=== PATIENT | male | born 1990 | race Caucasian/White ===

== ENCOUNTER 2016-11-09 20:22 | Inpatient (IN) ==
--- NOTE | 2016-11-09 20:40 | Emergency Department Note ---
Disposition Clinical Impression: Pneumothorax Qualifiers: Encounter type: initial encounter Disposition: Admitted As Inpatient Referrals: NO,PCP [Primary Care Provider] - Forms: ED Satisfaction Letter General Adult HPI - General Chief complaint: ED Shortness of Breath/Dyspnea Stated complaint: air bubble in lung Time Seen by Provider: 11/09/16 20:26 Source: patient Limitations: no limitations Nursing Notes Reviewed: Yes Vital Signs Reviewed: Yes - History of Present Illness HPI Narrative: Patient presents complaint right-sided chest pain that occurred spontaneously today. Patient stated he was just sitting watching TV and he noticed side chest pain. Patient was seen at urgent care had x-rays done that was significant for a right-sided apical pneumothorax. Patient denies shortness of breath but he does have pain when he takes a deep breath. Patient denies cough denies fevers or chills. Pain Scale: 7 - Related Data Previous Rx's Medication Instructions Recorded MethylPREDNISolone [Medrol] 4 mg PO TAPER #21 tablet 11/09/16 Allergies Allergy/AdvReac Type Severity Reaction Status Date / Time No Known Allergies Allergy Verified 11/09/16 17:37 All systems ED: reviewed and negative except as stated. Past Medical History - Past Medical History Source: patient Medical history: Reports: non-contributory Psychiatric history: Reports: no psych history - Social History Smoking Status: Current every day smoker Smokeless Tobacco Status: No Alcohol use: Reports: none Drug use: Reports: none Physical Exam - General Limitations: no limitations General appearance: alert, in no apparent distress - Head Head exam: atraumatic, normocephalic, normal inspection - Eye Eye exam: Present: normal appearance, PERRL, EOMI - ENT ENT exam: normal exam, normal oropharynx, mucous membranes moist - Neck Neck exam: Present: normal inspection, full ROM, trachea midline - Chest Chest inspection: Present: normal inspection, symmetric chest wall rise - Respiratory Respiratory exam: Present: normal lung sounds bilaterally - Cardiovascular Cardiovascular exam: Present: regular rate, normal rhythm, normal heart sounds - Abdominal Exam Abdominal exam: Present: soft, Non-Tender. Absent: tenderness, distention, guarding, rebound, rigidity - Extremities Exam Extremities exam: Present: normal inspection, full ROM. Absent: tenderness, pedal edema - Back Exam Back exam: Present: normal inspection, full ROM. Absent: tenderness - Neurological Exam Neurological exam: Present: alert, oriented X3 - Psychiatric Psychiatric exam: Present: normal affect, normal mood - Skin Skin exam: Present: warm, dry, intact, normal color Course Course Narrative: Discussed this patient with Dr. Sepulveda of the surgery service who graciously the agreed to admit the patient Vital Signs Temperature 97.9 F 11/09/16 20:28 Pulse Rate 71 11/09/16 20:28 Respiratory Rate 16 11/09/16 20:28 Blood Pressure 132/75 11/09/16 20:28 O2 Sat by Pulse Oximetry 98 11/09/16 20:28 Temperature 97.9 F 11/09/16 20:28 Pulse Rate 71 11/09/16 20:28 Respiratory Rate 16 11/09/16 20:28 Blood Pressure 132/75 11/09/16 20:28 O2 Sat by Pulse Oximetry 98 11/09/16 20:28 Oxygen Delivery Oxygen Delivery Room Air Medical Decision Making - Radiology Data Small right-sided pneumothorax as interpreted by radiology
[2016-11-09] MEDS ORDERED: *HR* Morphine 2 MG/ML SYRINGE IVP PRN (21:12)
[2016-11-09] MEDS ORDERED: Ondansetron 4 MG/2 ML VIAL IVP PRN (21:12)
[2016-11-09] MEDS ORDERED: Naloxone 0.4 MG/ML INJ IVP PRN (21:12)
[2016-11-09] MEDS ORDERED: *HR* Promethazine 25 MG/ML VIAL IVP PRN (21:12)
[2016-11-09] MEDS: 0.9 % Sodium Chloride 1,000 ML IVC SCH (22:25)
[2016-11-09] MEDS: Ipratropium/Albuterol Neb 3 ML IH SCH (23:07)
[2016-11-10] MEDS: Ipratropium/Albuterol Neb 3 ML IH SCH ×4 (04:02→22:24)
[2016-11-10 04:42] LABS: Basophils # 0.1 K/mcL (0.0-0.2); Basophils % 0.8 %; Eosinophils # 0.5 K/mcL (0.0-0.6); Eosinophils % 5.5 %; Hemoglobin 14.3 g/dL (12.9-16.9); Immature Granulocytes % 0.2 % (0-4); Lymphocytes # 3.1 K/mcL (0.6-4.6); Lymphocytes % 35.6 %; Mean Corpuscular Hemoglobin 31.1 pg (28.0-33.3); Mean Corpuscular Volume 91.3 fL (83.0-100.0); Monocytes # 0.9 K/mcL (0.0-1.3); Monocytes % 9.7 %; Neutrophils # 4.2 K/mcL (1.6-8.9); Platelet Count 166 K/mcL (140-400); Red Cell Distribution Width 12.7 % (11.5-14.5); Segmented Neutrophils % 48.2 %
[2016-11-10 05:06] LABS: BUN/Creatinine Ratio 13 (6-26); Blood Urea Nitrogen 10 mg/dL (8-26); Calcium 8.8 mg/dL (8.6-10.8); Carbon Dioxide 24 mEq/L (19-29); Chloride 105 mEq/L (98-109); Glucose 88 mg/dL (70-99); Osmolality,Calculated 290 (280-300); Potassium 3.9 mEq/L (3.5-4.5); Sodium 141 mEq/L (136-145); eGFR For African Americans > 60 (> 60); eGFR For Non-African Americans > 60 (> 60)
[2016-11-10] MEDS: 0.9 % Sodium Chloride 1,000 ML IVC SCH (07:49)
[2016-11-10] MEDS ORDERED: Pantoprazole 40 MG VIAL IVP SCH (09:00)
[2016-11-10] MEDS ORDERED: *HR* FentaNYL (PF) 100 MCG/2 ML VIAL IV PRN (10:22)
[2016-11-10] MEDS ORDERED: *HR* Midazolam HCl 2 MG/2 ML VIAL IV PRN (10:22)
[2016-11-10] MEDS ORDERED: 0.9 % Sodium Chloride 500 ML ONE (10:28)
--- NOTE | 2016-11-10 10:38 | IR Procedure Note ---
Date of procedure: 11/10/16 Consent Obtained: Verbal consent, Written consent Timeout: Correct patient and procedure verified, Correct site verified, Time out performed, Skin prep completed Local anesthetic: Lidocaine 1% Indications: Enlarging right PTX Procedure Performed: Right chest tube Site/Technique: Right chest tube placed Results/Findings: Small right PTX Estimated blood loss (cc): 1 Complications: None; Tolerated procedure well Post Procedure Treatment Plan: Continue inpatient care
[2016-11-10] MEDS ORDERED: *HR* OxyCODONE/APAP 5/325 TABLET PO PRN (12:08)
--- NOTE | 2016-11-10 15:08 | General Surg History&Physical ---
Date of Encounter: 11/10/16 Time of Encounter: 10:30 Assessment and Plan (1) Pneumothorax, right Current Visit: Yes Status: Acute The assessment and plan as outlined above was discussed with the patient and/or family members who expressed understanding and agreement. All questions were answered. Chest x-ray this morning shows progression of the pneumothorax despite being on 3 L nasal cannula continuously last night, incentive spirometer, scheduled aerosols. We had IR placed a pigtail catheter in the into the right pneumothorax given the progression. Chest tube will be to -20 mmHg continuous suction When necessary pain control 3 L nasal cannula continuously, aggressive pulmonary toilet with incentive spirometer and scheduled aerosols She can have a regular diet Daily chest x-rays History of Present Illness Chief complaint: chest pain/right sided HPI: Mr. Rockwell is a 26 year old male who was sitting on the couch is today afternoon when he started experiencing right upper chest and right back pain. He denies being short of breath at the time. He denies any dizziness or lightheadedness. He has never had symptoms like this before. He came to the ER and a chest x-ray was done which showed a small right apical pneumothorax. Past Med Surg Social Fam HX - Past Medical History Source: patient Medical history: non-contributory Psychiatric history: no psych history - Past Surgical History Surgical History: no surgical history - Social History Smoking Status: Current every day smoker Packs per day: 1 Smokeless Tobacco Status: No Alcohol use: none Drug use: none - Family History Grandmother History Unknown: Yes Medications and Allergies No Known Home Drugs 11/10/16 [History] Allergies No Known Allergies Allergy (Verified 11/10/16 13:40) Review of Systems All systems PM: reviewed and no additional remarkable complaints except as stated All systems PM: A 10-system review of systems was performed and is negative for pertinent findings except as documented above in the HPI. General Surgery Exam Initial Vital Signs Temp Pulse Resp BP Pulse Ox 97.9 F 71 16 132/75 98 11/09/16 20:28 11/09/16 20:28 11/09/16 20:28 11/09/16 20:28 11/09/16 20:28 - General physical appearance well developed, well nourished, no distress - Eyes PERRL, normal ocular movement - ENT normal mucosa, atraumatic, normocephalic - Neck trachea midline - Respiratory normal respiratory effort, clear to auscultation - Cardiovascular Cardiovascular exam: Present: RRR, no murmurs/rubs/gallops - Integumentary Integumentary general surgery: Present: warm and dry, no abnormal pigmentation. Absent: diaphoresis - Neurologic Present: CN 2-12 grossly intact - Musculoskeletal Present: normal gait, normal posture - Psychiatric Psychiatric general surgery: Present: A&Ox3 Results - Labs 11/10/16 03:56 11/10/16 03:56 Abnormal lab results POC Glucose 96 (58-89) H 11/10/16 05:06 Diabetes panel 11/10/16 Range/Units 03:56 Sodium 141 (136-145) mEq/L Potassium 3.9 (3.5-4.5) mEq/L Chloride 105 (98-109) mEq/L Carbon Dioxide 24 (19-29) mEq/L BUN 10 (8-26) mg/dL Creatinine 0.79 (0.72-1.25) mg/dL Glucose 88 (70-99) mg/dL Calcium 8.8 (8.6-10.8) mg/dL Calcium panel 11/10/16 Range/Units 03:56 Calcium 8.8 (8.6-10.8) mg/dL Pituitary panel 11/10/16 Range/Units 03:56 Sodium 141 (136-145) mEq/L Potassium 3.9 (3.5-4.5) mEq/L Chloride 105 (98-109) mEq/L Carbon Dioxide 24 (19-29) mEq/L BUN 10 (8-26) mg/dL Creatinine 0.79 (0.72-1.25) mg/dL Glucose 88 (70-99) mg/dL Calcium 8.8 (8.6-10.8) mg/dL Adrenal panel 11/10/16 Range/Units 03:56 Sodium 141 (136-145) mEq/L Potassium 3.9 (3.5-4.5) mEq/L Chloride 105 (98-109) mEq/L Carbon Dioxide 24 (19-29) mEq/L BUN 10 (8-26) mg/dL Creatinine 0.79 (0.72-1.25) mg/dL Glucose 88 (70-99) mg/dL Calcium 8.8 (8.6-10.8) mg/dL All other labs normal. - Imaging Chest x-ray: report reviewed, image reviewed
[2016-11-10] MEDS: *HR* OxyCODONE/APAP 5/325 TABLET PO PRN (17:03)
[2016-11-10] MEDS: *HR* Heparin 5,000 UNIT/ML VIAL SQ SCH (18:31)
[2016-11-11 04:35] LABS: Basophils # 0.1 K/mcL (0.0-0.2); Basophils % 0.9 %; Eosinophils # 0.4 K/mcL (0.0-0.6); Eosinophils % 5.3 %; Hematocrit 41.3 % (37.5-50.1); Hemoglobin 13.8 g/dL (12.9-16.9); Immature Granulocytes % 0.2 % (0-4); Lymphocytes # 2.5 K/mcL (0.6-4.6); Lymphocytes % 37.9 %; Mean Corpuscular HGB Conc 33.4 g/dL (31.6-35.5); Mean Corpuscular Hemoglobin 31.2 pg (28.0-33.3); Mean Corpuscular Volume 93.2 fL (83.0-100.0); Monocytes # 0.6 K/mcL (0.0-1.3); Neutrophils # 3.1 K/mcL (1.6-8.9); Platelet Count 149 K/mcL (140-400); Red Blood Count 4.43 M/mcL (4.19-5.50); Red Cell Distribution Width 12.8 % (11.5-14.5); Segmented Neutrophils % 46.7 %
[2016-11-11] MEDS: Ipratropium/Albuterol Neb 3 ML IH SCH ×4 (04:45→22:27)
[2016-11-11] MEDS: *HR* Heparin 5,000 UNIT/ML VIAL SQ SCH ×2 (06:20→18:03)
--- NOTE | 2016-11-11 06:24 | Electrocardiograph Report ---
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
--- NOTE | 2016-11-11 13:14 | General Surgery Progress Note ---
<Mariela Galvan - Last Filed: 11/11/16 13:15> Date of Encounter: 11/11/16 Time of Encounter: 13:00 - Assessment and Plan (1) Pneumothorax, right Current Visit: Yes Status: Acute Chest tube to 20cm suction Repeat chest x-ray in the am Incentive Spirometer every 1 hour while awake Supportive care Continue scheduled aerosols Subjective Patient reports: feels better, tolerating a regular diet, voiding w/o difficulty , afebrile, other (Denies shortness of breath) Objective Vital Signs - Last 8 Hours Temp Pulse Resp BP Pulse Ox 11/11/16 11:02 98.2 F 71 16 119/61 97 11/11/16 10:29 16 98 11/11/16 07:23 97.7 F 73 16 110/61 97 Intake and Output 11/10/16 11/11/16 11/11/16 23:59 07:59 15:59 Intake Total 240 / 240 0 / 0 850 / 850 Output Total 700 / 700 750 / 750 600 / 600 Balance -460 / -460 -750 / -750 250 / 250 Intake: Oral 240 / 240 0 / 0 850 / 850 Output: Urine 700 / 700 750 / 750 600 / 600 Other: Meal Dinner Breakfast Percent of Meal Consumed 100% 10% # Bowel Movements 0 Weight 64.7 kg Blood Glucose* 108 Patient Weight 11/11/16 23:59 Weight 64.7 kg - General physical appearance well developed, well nourished, no distress - Eyes normal ocular movement - ENT normal mucosa, atraumatic, normocephalic - Neck Neck exam: trachea midline - Respiratory normal expansion, normal respiratory effort, clear to auscultation, other ( Right chest tube to 20cm suction - no leak) - Cardiovascular Cardiovascular exam: Present: RRR - Abdomen Abdomen: Present: bowel sounds present, soft, non tender - Neurologic CN 2-12 grossly intact - Musculoskeletal normal gait, normal posture - Psychiatric oriented to time, oriented to person, oriented to place, speech is normal, memory intact - Labs 11/11/16 04:00 11/10/16 03:56 Consult Discharge Plan - Plan Referrals: NO,PCP [Primary Care Provider] - - Attending Attestation I examined this patient and my medical decision-making was reviewed with the FOUNDER [employer] CEO/PA/Advanced Practice Nurse/Resident Physician. I agree with the documented findings, disposition and treatment plan as described except to the extent set forth below. <Patience Sepulveda - Last Filed: 11/11/16 17:16> - Assessment and Plan (1) Pneumothorax, right Current Visit: Yes Status: Acute pneumothorax improved but not fully resolved continue CT to -20 suction O2 3 L NC aggressive pulmonary toilet, IS, aerosols cxr in am Subjective Narrative: no further chest pain or SOB irritated because has to be in hospital Objective Vital Signs - Last 8 Hours Temp Pulse Resp BP Pulse Ox 11/11/16 15:40 16 97 11/11/16 14:29 97.6 F 69 16 106/56 99 11/11/16 11:02 98.2 F 71 16 119/61 97 11/11/16 10:29 16 98 Intake and Output 11/11/16 11/11/16 11/11/16 07:59 15:59 23:59 Intake Total 0 / 0 1090 / 1090 Output Total 750 / 750 1350 / 1350 Balance -750 / -750 -260 / -260 Intake: Oral 0 / 0 1090 / 1090 Output: Urine 750 / 750 1350 / 1350 Other: Meal Lunch Percent of Meal Consumed 0% # Bowel Movements 0 0 Weight 64.7 kg Patient Weight 11/11/16 23:59 Weight 64.7 kg - General physical appearance well developed, well nourished, no distress, no pain - Eyes PERRL, normal ocular movement - ENT normal mucosa, normocephalic - Neck Neck exam: trachea midline - Respiratory normal expansion, normal respiratory effort, clear to auscultation, other - Cardiovascular Cardiovascular exam: Present: RRR - Abdomen Abdomen: Present: bowel sounds present, soft, non tender - Integumentary no rash, no growths - Neurologic CN 2-12 grossly intact - Musculoskeletal normal posture - Psychiatric oriented to time, oriented to person, oriented to place, speech is normal, memory intact - Labs 11/11/16 04:00 11/10/16 03:56 - Imaging Chest x-ray: report reviewed, image reviewed
[2016-11-12] MEDS: Ipratropium/Albuterol Neb 3 ML IH SCH ×4 (03:06→21:43)
[2016-11-12] MEDS: *HR* Morphine 2 MG/ML SYRINGE IVP PRN ×2 (03:40→18:29)
[2016-11-12 04:49] LABS: Basophils # 0.1 K/mcL (0.0-0.2); Basophils % 0.6 %; Eosinophils # 0.3 K/mcL (0.0-0.6); Eosinophils % 4.4 %; Hematocrit 42.4 % (37.5-50.1); Hemoglobin 14.4 g/dL (12.9-16.9); Immature Granulocytes % 0.1 % (0-4); Lymphocytes # 2.1 K/mcL (0.6-4.6); Lymphocytes % 27.2 %; Mean Corpuscular Hemoglobin 31.4 pg (28.0-33.3); Mean Corpuscular Volume 92.6 fL (83.0-100.0); Mean Platelet Volume 10.9 fL (9.4-12.4); Monocytes # 0.9 K/mcL (0.0-1.3); Monocytes % 10.9 %; Neutrophils # 4.4 K/mcL (1.6-8.9); Platelet Count 159 K/mcL (140-400); Red Blood Count 4.58 M/mcL (4.19-5.50); Red Cell Distribution Width 12.9 % (11.5-14.5); Segmented Neutrophils % 56.8 %
[2016-11-12] MEDS: *HR* Heparin 5,000 UNIT/ML VIAL SQ SCH ×2 (06:07→18:29)
--- NOTE | 2016-11-12 09:56 | General Surgery Progress Note ---
<Mariela Galvan - Last Filed: 11/12/16 09:54> Date of Encounter: 11/12/16 Time of Encounter: 09:30 - Assessment and Plan (1) Pneumothorax, right Current Visit: Yes Status: Acute Chest tube to placed to water seal Repeat chest x-ray at 1400 today Incentive Spirometer every 1 hour while awake Supportive care Continue scheduled aerosols Subjective Patient reports: feels better, tolerating a regular diet, voiding w/o difficulty , afebrile, other (Patient had an episode of chest pain and shortness of breath last night. States that it was resolved with morphine and increase in supplemental oxygen to 4L per nasal cannula.) Objective Vital Signs - Last 8 Hours Temp Pulse Resp BP Pulse Ox 11/12/16 08:21 97.4 F L 67 18 112/68 99 11/12/16 03:08 18 100 11/12/16 03:05 97.6 F 72 20 119/71 95 Intake and Output 11/11/16 11/12/16 11/12/16 23:59 07:59 15:59 Intake Total 120 / 120 Output Total 600 / 600 0 / 0 Balance -600 / -600 120 / 120 Intake: Oral 120 / 120 Output: Urine 600 / 600 0 / 0 Other: Meal Breakfast Percent of Meal Consumed 30% Weight 65.1 kg Patient Weight 11/12/16 23:59 Weight 65.1 kg - General physical appearance well developed, well nourished, no distress - Eyes normal ocular movement - ENT normal mucosa, atraumatic, normocephalic - Neck Neck exam: trachea midline - Respiratory normal respiratory effort, clear to auscultation, other (chest tube to 20cm suction, no leak) - Cardiovascular Cardiovascular exam: Present: RRR - Abdomen Abdomen: Present: bowel sounds present, soft, non tender - Neurologic CN 2-12 grossly intact - Musculoskeletal normal gait, normal posture - Psychiatric oriented to time, oriented to person, oriented to place, speech is normal, memory intact - Labs 11/12/16 04:32 11/10/16 03:56 Consult Discharge Plan - Plan Referrals: NO,PCP [Primary Care Provider] - - Attending Attestation I examined this patient and my medical decision-making was reviewed with the SUPER[employer]/PA/Advanced Practice Nurse/Resident Physician. I agree with the documented findings, disposition and treatment plan as described except to the extent set forth below. <Patience Sepulveda Desiree - Last Filed: 11/12/16 12:03> - Assessment and Plan (1) Pneumothorax, right Current Visit: Yes Status: Acute agree with Ruth Lopez/Dana Subjective Patient reports: feels better, tolerating a regular diet, voiding w/o difficulty Objective Vital Signs - Last 8 Hours Temp Pulse Resp BP Pulse Ox 11/12/16 11:31 97.5 F L 68 16 106/71 97 11/12/16 08:21 97.4 F L 67 18 112/68 99 Intake and Output 11/11/16 11/12/16 11/12/16 23:59 07:59 15:59 Intake Total 120 / 120 Output Total 600 / 600 800 / 800 Balance -600 / -600 -680 / -680 Intake: Oral 120 / 120 Output: Urine 600 / 600 800 / 800 Other: Meal Breakfast Percent of Meal Consumed 30% Weight 65.1 kg Patient Weight 11/12/16 23:59 Weight 65.1 kg - General physical appearance well developed, well nourished, no distress - Eyes PERRL, normal ocular movement - ENT normal mucosa, atraumatic, normocephalic - Neck Neck exam: trachea midline - Respiratory normal expansion, clear to auscultation - Cardiovascular Cardiovascular exam: Present: RRR - Abdomen Abdomen: Present: bowel sounds present, soft, non tender - Integumentary no rash, no growths - Neurologic CN 2-12 grossly intact - Musculoskeletal normal posture - Psychiatric oriented to time, oriented to person, oriented to place, memory intact - Labs 11/12/16 04:32 11/10/16 03:56 - Imaging Chest x-ray: report reviewed, image reviewed
[2016-11-13] MEDS: Ipratropium/Albuterol Neb 3 ML IH SCH ×3 (03:42→16:29)
[2016-11-13 05:28] LABS: Basophils # 0.1 K/mcL (0.0-0.2); Basophils % 1.1 %; Eosinophils # 0.4 K/mcL (0.0-0.6); Eosinophils % 5.8 %; Hematocrit 43.8 % (37.5-50.1); Hemoglobin 14.9 g/dL (12.9-16.9); Immature Granulocytes % 0.1 % (0-4); Lymphocytes # 2.7 K/mcL (0.6-4.6); Lymphocytes % 38.4 %; Mean Corpuscular Hemoglobin 31.5 pg (28.0-33.3); Mean Corpuscular Volume 92.6 fL (83.0-100.0); Mean Platelet Volume 11.9 fL (9.4-12.4); Monocytes # 0.9 K/mcL (0.0-1.3); Monocytes % 12.8 %; Neutrophils # 2.9 K/mcL (1.6-8.9); Platelet Count 165 K/mcL (140-400); Red Blood Count 4.73 M/mcL (4.19-5.50); Red Cell Distribution Width 12.8 % (11.5-14.5); Segmented Neutrophils % 41.8 %
[2016-11-13] MEDS: *HR* Heparin 5,000 UNIT/ML VIAL SQ SCH (06:28)
[2016-11-13] MEDS: *HR* OxyCODONE/APAP 5/325 TABLET PO PRN (10:33)
--- NOTE | 2016-11-13 11:40 | Discharge Summary ---
Date of Encounter: 11/13/16 Time of Encounter: 15:30 - Discharge Diagnosis (1) Pneumothorax, right Priority: Primary Status: Acute (2) Tobacco abuse Priority: Secondary Status: Acute - Discharge Medications Home Medications: No Known Home Drugs 11/10/16 [History] Allergies/Adverse Reactions: Allergies No Known Allergies Allergy (Verified 11/10/16 13:40) General Surgery Exam Initial Vital Signs Temp Pulse Resp BP Pulse Ox 97.9 F 71 16 132/75 98 11/09/16 20:28 11/09/16 20:28 11/09/16 20:28 11/09/16 20:28 11/09/16 20:28 - General physical appearance well nourished, no distress - Eyes PERRL, normal ocular movement - ENT normal mucosa, atraumatic, normocephalic - Neck trachea midline - Respiratory normal expansion, normal respiratory effort, clear to auscultation - Cardiovascular Cardiovascular exam: Present: RRR - Integumentary Integumentary general surgery: Present: warm and dry, no abnormal pigmentation - Neurologic Present: CN 2-12 grossly intact - Musculoskeletal Present: normal posture - Psychiatric Psychiatric general surgery: Present: A&Ox3, speech is normal Date of admission: 11/10/16 17:25 Primary care physician: PCP NO Discharging clinician: Patience Sepulveda - Patient Status Disposition: Home, Self-Care Condition: Good Functional capacity at discharge: independent ambulation Overall status at discharge: patient is progressing back to baseline - Discharge Instructions Follow Up With: Mone Grier, TIMBER HEWER [Advanced Practice Nurse] - - Diet and Activity Activity: as per physical therapy Diet: advance to your usual diet - Hospital Course Hospital course: Mr. Rockwell is a 26 year old male who was admitted with a spontaneous right pneumothorax. Initially he was treated conservatively with 3L NC O2 continuously , scheduled aerosols and aggressive IS but the following morning the pneumothorax had progressed slightly. IR placed a blue pigtail catheter into the right chest and he was placed to -20mmHg pleurovac. The pnx slowly resolved. He was placed to water seal and repeat CXR showed almost resolution of the pnx. The pigtail tube was removed and a repeat CXR 4 hrs later showed no progression and contiued resolution of the pneumothorax. He was discharged home in stable condition. - Time Spent with Patient Total time spent providing and/or coordinating discharge services: Labs on day of discharge: Labs from last 24 hours 11/13/16 03:58 WBC 7.1 RBC 4.73 Hgb 14.9 Hct 43.8 MCV 92.6 MCH 31.5 MCHC 34.0 RDW 12.8 Plt Count 165 MPV 11.9 Immature Gran % 0.1 Seg Neutrophils % 41.8 Lymphocytes % 38.4 Monocytes % 12.8 Eosinophils % 5.8 Basophils % 1.1 Neutrophils # 2.9 Lymphocytes # 2.7 Monocytes # 0.9 Eosinophils # 0.4 Basophils # 0.1 - Impressions ITS Impressions Chest X-Ray 11/11/16 07:00 IMPRESSION: 1. Right pleural catheter with interval decrease in size in right pneumothorax. 2. Otherwise, no acute abnormality identified in the lungs. D/ / Byron Vazquez MD / Byron Vazquez MD Interpreting Provider: Byron Vazquez MD Chest X-Ray 11/12/16 07:00 IMPRESSION: Stable appearance of the chest with unchanged small right apical pneumothorax. D/ / Joseph Nunn MD / Joseph Nunn MD Interpreting Provider: Joseph Nunn MD Chest X-Ray 11/12/16 14:00 IMPRESSION: 1. Right apical pneumothorax measures 6 mm from the visceral to parietal pleural distance. D/ / Danielito Freeman MD / Danielito Freeman MD Interpreting Provider: Danielito Freeman MD Chest X-Ray 11/13/16 07:00 IMPRESSION: 1. Right pleural catheter unchanged in position with unchanged trace right apical pneumothorax. 2. Otherwise, no evidence of acute cardiopulmonary abnormality. D/ / Byron Vazquez MD / Byron Vazquez MD Interpreting Provider: Byron Vazquez MD
[2016-11-13 15:22] VITALS: BP 122/57
== END 2016-11-13 16:53 | disposition home or self-care (01) | DRG 143 ==
LOC: EMEROO 20:22 → 3ANU 20:22
PROVIDERS: ADMIT Surgery; ATTEND Surgery